=== PATIENT | male | born 1935 | race Caucasian/White ===

== ENCOUNTER 2021-06-10 19:43 | Emergency (ER) | payer MEDICARE, OTHER ==
[2021-06-10] MEDS ORDERED: Diltiazem 100 MG in Sodium Chloride 0.9% 100 ML IV SCH (20:45)
[2021-06-10] MEDS ORDERED: Diltiazem 50 MG/10 ML SDV IVPUSH STA (20:45)
--- NOTE | 2021-06-10 20:48 | EDM.PDOC ---
<Ronny Perkins - Last Filed: 06/11/21 14:59> ED HPI GENERAL MEDICAL PROBLEM - General Chief Complaint: Respiratory Problem Stated Complaint: [facility] Time Seen by Provider: 06/10/21 19:54 - Related Data Allergies Allergy/AdvReac Type Severity Reaction Status Date / Time No Known Allergies Allergy Verified 06/10/21 19:59 Home Meds: Home Meds . [No Known Home Meds] 06/10/21 [History] Course - Re-Assessments/Exams Free Text/Narrative Re-Assessment/Exam: 06/11/21 14:14 The patient's O2 requirements continue to climb. He is on 15 L on a nonrebreather 88 to 90% at this point I will try prone positioning and see if this helps. I had a discussion with the patient regarding his CODE STATUS he confirms he does not want to be put on life support but short of that anything that can be done. I was noted fied roughly 30 minutes ago but that [facility] in [place] would be able to take the patient.. About 5 minutes ago I got off the phone with Dr. De Leon who kindly is excepting the patient. 06/11/21 14:24 I discussed situation with the patient's nephew who strongly supports the jennifer padilla's views on resuscitation the patient is a DNR but treat everything that is treatable at this point. The patient did give me permission to discuss anything about the patient's care and current condition with the nephew. 06/11/21 14:50 The patient is doing much better in the prone position. His blood pressure is little low when trying back off on the diltiazem drip just a little bit she may get his pressure little bit better and will try and decrease his O2 supplementation he is at 100% Departure - Departure Time of Disposition: 14:18 Disposition: DC/Tfer to Acute Hospital 02 Clinical Impression: COVID-19, Pulmonary embolism, Atrial fibrillation with rapid ventricular response, Hypoxia - Discharge Information Referrals: PCP,Unobtain [Primary Care Provider] - Forms: ED Department Discharge <Oz Jennings - Last Filed: 06/12/21 18:47> ED HPI GENERAL MEDICAL PROBLEM - General Source of Information: Reports: Patient History Limitations: Reports: No Limitations - History of Present Illness INITIAL COMMENTS - FREE TEXT/NARRATIVE: Mr. Lambert is a very pleasant 86-year-old gentleman who is now brought to the ED by EMS. It is unclear who called EMS. The patient states that he has been feeling poorly for at least 10 days, including having a dry mouth, dry cough, possible dyspnea, and decreased urine output. He expressly denies having a recent fever, chills, headache, nausea, constipation, diarrhea, abdominal pain, body aches, chest pain or discomfort, or palpitations. He denies having any pain at this time. He has not taken any [id number] or home remedies since the onset of his symptoms. Here in the ED, the patient is found to be tachycardic at 157 bpm, otherwise, he is hemodynamic stable, afebrile, saturating 92% on room air. An ECG, obtained at triage, demonstrates atrial fibrillation with RVR. The patient's PCP is Dr. Quinn Hull, however, the patient states that he has not seen Dr. Hull in at least 6 years. He has not received a COVID vaccination. Treatments HOSPITAL INSURANCE CLERK: Reports: IV/IO Past Medical History Musculoskeletal History: Reports: Other (See Below) (Recurrent osteomyelitis distal left leg) - Past Surgical History HEENT Surgical History: Reports: Oral Surgery (dental extractions) Musculoskeletal Surgical History: Reports: Other (See Below) (Debridement distal left leg x many) Social & Family History - Tobacco Use Tobacco Use Status *Q: Never Tobacco User - Alcohol Use Alcohol Use History: Yes Alcohol Use Frequency: Rarely - Recreational Drug Use Recreational Drug Use: No - Living Situation & Occupation Living situation: Reports: Single, Alone Occupation: Retired ED ROS GENERAL - Review of Systems Review Of Systems: Comprehensive ROS is negative, except as noted in HPI. ED EXAM, GENERAL - Physical Exam Exam: See Below Exam Limited By: No Limitations General Appearance: Alert, No Apparent Distress, Thin Eye Exam: Bilateral Eye: EOMI, Normal Inspection Ears: Normal External Exam, Hearing Grossly Normal Nose: Normal Inspection Throat/Mouth: Normal Inspection, Normal Lips, No Airway Compromise, Other (Dry oral mucosa) Head: Atraumatic, Normocephalic Neck: Normal Inspection, Full Range of Motion Respiratory/Chest: No Respiratory Distress, Lungs Clear, Normal Breath Sounds, No Accessory Muscle Use Cardiovascular: Normal Peripheral Pulses, No Edema, No Gallop, No JVD, No Murmur, No Rub, Tachycardia, Irregularly Irregular Peripheral Pulses: 3+: Radial (L), Radial (R) GI/Abdominal: Normal Bowel Sounds, Soft, Non-Tender, No Organomegaly, No Distention, No Abnormal Bruit, No Mass Back Exam: Normal Inspection, Full Range of Motion, NT Extremities: Normal Range of Motion, No Pedal Edema, Normal Capillary Refill, Other (Approximately 10 cm x 9 cm area of purplish discoloration to the distal anteromedial left leg, with an approximately 5 cm x 3 cm central ulceration. Neurovascular status of the left lower extremity appears to be intact.) Neurological: Alert, Oriented, Normal Cognition, No Motor/Sensory Deficits Psychiatric: Normal Affect Skin Exam: Warm, Dry, Intact, Normal Color, No Rash #1 Interpretation EKG Date: 06/10/21 Time: 19:50 Rhythm: A-Fib Rate (Beats/Min): 147 [place]: Normal P-Wave: Absent QRS: Normal ST-T: Normal QT: Normal Comparison: NA - No Prior EKG Course - Vital Signs Last Recorded V/S: Last Vital Signs Temp 36.7 C 06/10/21 19:50 Pulse 115 H 06/11/21 14:45 Resp 30 H 06/11/21 14:45 BP 105/68 06/11/21 14:45 Pulse Ox 100 06/11/21 14:45 - Orders/Labs/Meds Labs: Laboratory Tests 06/10/21 06/10/21 06/10/21 Range/Units 20:15 21:10 21:10 WBC 15.01 H (4.23-9.07) K/mm3 RBC 4.66 (4.63-6.08) M/mm3 Hgb 15.0 (13.7-17.5) gm/dl Hct 44.1 (40.1-51.0) % MCV 94.6 H (79.0-92.2) fl MCH 32.2 (25.7-32.2) pg MCHC 34.0 (32.2-35.5) g/dl RDW Std Deviation 49.3 H (35.1-43.9) fL Plt Count 129 L (163-337) K/mm3 MPV 10.5 (9.4-12.3) fl Neutrophils % (Manual) 89 H (40-60) % Band Neutrophils % 0 (0-10) % Lymphocytes % (Manual) 5 L (20-40) % Atypical Lymphs % 0 % Monocytes % (Manual) 6 (2-10) % Eosinophils % (Manual) 0 L (0.8-7.0) % Basophils % (Manual) 0 L (0.2-1.2) Toxic Granulation Few Platelet Estimate Decreased Anisocytosis 1+ slight RBC Morph Comment Abn PT (9.7-12.0) SECONDS INR APTT (21.7-31.4) SECONDS D-Dimer, Quantitative (0.19-0.50) mg/L ABG pH (7.35-7.45) ABG pCO2 (35.0-45.0) mmHg ABG pO2 (80.0-100.0) mmHg ABG HCO3 (22.0-26.0) meq/L ABG O2 Saturation (96.0-97.0) % ABG Base Excess (-2-2.0) Jet Test A-a Gradient mmHg O2 Delivery Device Oxygen Flow Rate FiO2 (21.00-100.00) % Sodium 152 H (136-145) mEq/L Potassium 4.1 (3.5-5.1) mEq/L Chloride 116 H (98-107) mEq/L Carbon Dioxide 25 (21-32) mEq/L Anion Gap 15.1 H (5-15) BUN 77 H (7-18) mg/dL Creatinine 2.1 H (0.7-1.3) mg/dL Est Cr Clr Drug Dosing 26.69 mL/min Estimated GFR (MDRD) 30 (>60) mL/min BUN/Creatinine Ratio 36.7 H (14-18) Glucose 165 H (70-99) mg/dL Lactic Acid (0.4-2.0) mmol/L Calcium 8.8 (8.5-10.1) mg/dL Magnesium 2.2 (1.8-2.4) mg/dL Total Bilirubin 7.2 H (0.2-1.0) mg/dL AST 53 H (15-37) U/L ALT 24 (16-63) U/L Alkaline Phosphatase 69 (46-116) U/L Troponin I 0.017 (0.00-0.056) ng/mL C-Reactive Protein 35.7 H* (<1.0) mg/dL Total Protein 6.3 L (6.4-8.2) g/dl Albumin 2.7 L (3.4-5.0) g/dl Globulin 3.6 gm/dL Albumin/Globulin Ratio 0.8 L (1-2) TSH 3rd Generation 0.384 (0.358-3.74) uIU/mL Urine Color (Yellow) Urine Appearance (Clear) Urine pH (5.0-8.0) Ur Specific [place] (1.005-1.030) Urine Protein (Negative) Urine Glucose (UA) (Negative) Urine Ketones (Negative) Urine Occult Blood (Negative) Urine Nitrite (Negative) Urine Bilirubin (Negative) Urine Urobilinogen (0.2-1.0) Ur Leukocyte Esterase (Negative) U Hyaline Cast (Auto) (0-5) /lpf Urine RBC (0-5) /hpf Urine WBC (0-5) /hpf Ur Squamous Epith Cells (0-5) /hpf Urine Bacteria (FEW) /hpf Fine Granular Casts (0-5) /lpf Urine Mucus (FEW) /hpf SARS-CoV-2 RNA (JHONNY) Positive H (NEGATIVE) 06/10/21 06/10/21 06/10/21 Range/Units 21:10 21:10 21:15 WBC (4.23-9.07) K/mm3 RBC (4.63-6.08) M/mm3 Hgb (13.7-17.5) gm/dl Hct (40.1-51.0) % MCV (79.0-92.2) fl MCH (25.7-32.2) pg MCHC (32.2-35.5) g/dl RDW Std Deviation (35.1-43.9) fL Plt Count (163-337) K/mm3 MPV (9.4-12.3) fl Neutrophils % (Manual) (40-60) % Band Neutrophils % (0-10) % Lymphocytes % (Manual) (20-40) % Atypical Lymphs % % Monocytes % (Manual) (2-10) % Eosinophils % (Manual) (0.8-7.0) % Basophils % (Manual) (0.2-1.2) Toxic Granulation Platelet Estimate Anisocytosis RBC Morph Comment PT 19.1 H (9.7-12.0) SECONDS INR 1.81 APTT 41.1 H (21.7-31.4) SECONDS D-Dimer, Quantitative > 35.20 H (0.19-0.50) mg/L ABG pH 7.44 (7.35-7.45) ABG pCO2 33.5 L (35.0-45.0) mmHg ABG pO2 26.0 L* (80.0-100.0) mmHg ABG HCO3 22.1 (22.0-26.0) meq/L ABG O2 Saturation 37.2 L (96.0-97.0) % ABG Base Excess -0.9 (-2-2.0) Jet Test Positive A-a Gradient 132 mmHg O2 Delivery Device Nasal cannula Oxygen Flow Rate 2.0 FiO2 28.00 (21.00-100.00) % Sodium (136-145) mEq/L Potassium (3.5-5.1) mEq/L Chloride (98-107) mEq/L Carbon Dioxide (21-32) mEq/L Anion Gap (5-15) BUN (7-18) mg/dL Creatinine (0.7-1.3) mg/dL Est Cr Clr Drug Dosing mL/min Estimated GFR (MDRD) (>60) mL/min BUN/Creatinine Ratio (14-18) Glucose (70-99) mg/dL Lactic Acid 3.8 H* (0.4-2.0) mmol/L Calcium (8.5-10.1) mg/dL Magnesium (1.8-2.4) mg/dL Total Bilirubin (0.2-1.0) mg/dL AST (15-37) U/L ALT (16-63) U/L Alkaline Phosphatase (46-116) U/L Troponin I (0.00-0.056) ng/mL C-Reactive Protein (<1.0) mg/dL Total Protein (6.4-8.2) g/dl Albumin (3.4-5.0) g/dl Globulin gm/dL Albumin/Globulin Ratio (1-2) TSH 3rd Generation (0.358-3.74) uIU/mL Urine Color (Yellow) Urine Appearance (Clear) Urine pH (5.0-8.0) Ur Specific [place] (1.005-1.030) Urine Protein (Negative) Urine Glucose (UA) (Negative) Urine Ketones (Negative) Urine Occult Blood (Negative) Urine Nitrite (Negative) Urine Bilirubin (Negative) Urine Urobilinogen (0.2-1.0) Ur Leukocyte Esterase (Negative) U Hyaline Cast (Auto) (0-5) /lpf Urine RBC (0-5) /hpf Urine WBC (0-5) /hpf Ur Squamous Epith Cells (0-5) /hpf Urine Bacteria (FEW) /hpf Fine Granular Casts (0-5) /lpf Urine Mucus (FEW) /hpf SARS-CoV-2 RNA (JHONNY) (NEGATIVE) 06/10/21 06/10/21 Range/Units 21:50 23:58 WBC (4.23-9.07) K/mm3 RBC (4.63-6.08) M/mm3 Hgb (13.7-17.5) gm/dl Hct (40.1-51.0) % MCV (79.0-92.2) fl MCH (25.7-32.2) pg MCHC (32.2-35.5) g/dl RDW Std Deviation (35.1-43.9) fL Plt Count (163-337) K/mm3 MPV (9.4-12.3) fl Neutrophils % (Manual) (40-60) % Band Neutrophils % (0-10) % Lymphocytes % (Manual) (20-40) % Atypical Lymphs % % Monocytes % (Manual) (2-10) % Eosinophils % (Manual) (0.8-7.0) % Basophils % (Manual) (0.2-1.2) Toxic Granulation Platelet Estimate Anisocytosis RBC Morph Comment PT (9.7-12.0) SECONDS INR APTT (21.7-31.4) SECONDS D-Dimer, Quantitative (0.19-0.50) mg/L ABG pH (7.35-7.45) ABG pCO2 (35.0-45.0) mmHg ABG pO2 (80.0-100.0) mmHg ABG HCO3 (22.0-26.0) meq/L ABG O2 Saturation (96.0-97.0) % ABG Base Excess (-2-2.0) Jet Test A-a Gradient mmHg O2 Delivery Device Oxygen Flow Rate FiO2 (21.00-100.00) % Sodium (136-145) mEq/L Potassium (3.5-5.1) mEq/L Chloride (98-107) mEq/L Carbon Dioxide (21-32) mEq/L Anion Gap (5-15) BUN (7-18) mg/dL Creatinine (0.7-1.3) mg/dL Est Cr Clr Drug Dosing mL/min Estimated GFR (MDRD) (>60) mL/min BUN/Creatinine Ratio (14-18) Glucose (70-99) mg/dL Lactic Acid 3.3 H* (0.4-2.0) mmol/L Calcium (8.5-10.1) mg/dL Magnesium (1.8-2.4) mg/dL Total Bilirubin (0.2-1.0) mg/dL AST (15-37) U/L ALT (16-63) U/L Alkaline Phosphatase (46-116) U/L Troponin I (0.00-0.056) ng/mL C-Reactive Protein (<1.0) mg/dL Total Protein (6.4-8.2) g/dl Albumin (3.4-5.0) g/dl Globulin gm/dL Albumin/Globulin Ratio (1-2) TSH 3rd Generation (0.358-3.74) uIU/mL Urine Color Brooke H (Yellow) Urine Appearance Clear (Clear) Urine pH 5.5 (5.0-8.0) Ur Specific [place] 1.025 (1.005-1.030) Urine Protein 3+ H (Negative) Urine Glucose (UA) Negative (Negative) Urine Ketones 1+ H (Negative) Urine Occult Blood 3+ H (Negative) Urine Nitrite Positive H (Negative) Urine Bilirubin 2+ H (Negative) Urine Urobilinogen 2.0 H (0.2-1.0) Ur Leukocyte Esterase Negative (Negative) U Hyaline Cast (Auto) 40-50 H (0-5) /lpf Urine RBC 10-20 H (0-5) /hpf Urine WBC 0-5 (0-5) /hpf Ur Squamous Epith Cells 0-5 (0-5) /hpf Urine Bacteria Many H (FEW) /hpf Fine Granular Casts 0-5 (0-5) /lpf Urine Mucus Few (FEW) /hpf SARS-CoV-2 RNA (JHONNY) (NEGATIVE) Meds: Medications Discontinued Medications Generic Name Dose Route Start Last Admin Trade Name Freq PRN Reason Stop Dose Admin Dexamethasone 6 mg 06/11/21 10:32 06/11/21 13:17 Dexamethasone 10 Mg/Ml Sdv IVPUSH 06/11/21 10:33 6 mg ONETIME STA Administration Dexamethasone Confirm 06/11/21 12:37 06/11/21 12:41 Dexamethasone 10 Mg/Ml Sdv Administered 06/11/21 12:38 Not Given Dose 10 mg .ROUTE .STK-MED ONE Diltiazem HCl 5 mg 06/10/21 20:45 06/10/21 21:10 Diltiazem 50 Mg/10 Ml Sdv IVPUSH 06/10/21 20:46 5 mg ONETIME STA Administration Diphenhydramine HCl 50 mg 06/10/21 22:31 Diphenhydramine 50 Mg/Ml Sdv IVPUSH ONETIME PRN hypersensitivity reaction Epinephrine HCl 0.3 mg 06/10/21 22:31 Epinephrine 1 Mg/Ml Sdv IM ONETIME PRN hypersensitivity reaction Famotidine 20 mg 06/10/21 22:31 Famotidine 20 Mg/2 Ml Sdv IVPUSH ONETIME PRN hypersensitivity reaction Heparin Sodium (Porcine) 5,000 units 06/11/21 05:59 06/11/21 07:37 Heparin Sodium 5,000 Units/Ml Vial IVPUSH 06/11/21 06:00 5,000 units .BOLUS STA Administration Diltiazem HCl 100 mg/ Sodium 100 mls @ 10 mls/hr 06/10/21 20:45 06/10/21 21:18 Chloride IV 10 mg/hr TITRATE BERNARDA 10 mls/hr Administration Protocol 10 MG/HR Sodium Chloride 1,000 mls @ 999 mls/hr 06/10/21 22:13 06/11/21 00:22 Normal Saline IV 06/10/21 23:13 999 mls/hr ONETIME ONE Administration CASIRIVIMAB/IMDEVIMAB 10 ml/ 110 mls @ 220 mls/hr 06/10/21 22:31 06/11/21 00:21 Sodium Chloride IV 06/10/21 23:00 220 mls/hr ONETIME ONE Administration Sodium Chloride 100 mls @ 100 mls/min 06/11/21 00:45 Normal Saline IV 06/11/21 01:00 ASDIRECTED [facility] Heparin Sodium/Dextrose 25,000 units in 500 mls @ 26 mls/hr 06/11/21 06:00 06/11/21 07:39 Heparin 25,000 Units In D5w 500 Ml IV 1,300 units/hr TITRATE BERNARDA 26 mls/hr Administration Protocol 1,300 UNITS/HR Remdesivir 200 mg/ Sodium 250 mls @ 250 mls/hr 06/11/21 10:33 06/11/21 13:19 Chloride IV 06/11/21 10:34 250 mls/hr ONETIME ONE Administration Sodium Chloride 1,000 mls @ 150 mls/hr 06/11/21 10:45 Normal Saline IV ASDIRECTED BERNARDA Iopamidol 50 ml 06/11/21 00:31 Iopamidol 755 Mg/Ml 50 Ml Bottle IVPUSH 06/11/21 00:32 ONETIME ONE Methylprednisolone Sodium Succinate 125 mg 06/10/21 22:31 Methylprednisolone Sodium Succinate 125 Mg/2 Ml Sdv IVPUSH ONETIME PRN hypersensitivity reaction Nitrofurantoin Macrocrystals 100 mg 06/10/21 22:26 06/11/21 00:19 Nitrofurantoin Monohydrate/Macrocrystalline 100 Mg Cap PO 06/10/21 22:27 100 mg ONETIME STA Administration Sodium Chloride 30 ml 06/10/21 22:45 Sodium Chloride 0.9% 10 Ml Syringe FLUSH ASDIRECTED BERNARDA Sodium Chloride 10 ml 06/11/21 00:31 Sodium Chloride 0.9% 10 Ml Sdv FLUSH 06/11/21 00:32 ONETIME ONE - Re-Assessments/Exams Free Text/Narrative Re-Assessment/Exam: 06/10/21 20:46 An ECG, obtained at triage, demonstrates atrial fibrillation with RVR at [address] depressions in V4, alone, but otherwise no ischemic changes. I have ordered a work-up and includes numerous blood tests, 2 sets of blood cultures, an ABG, a swab for the SARS-CoV-2 virus, a urinalysis by quick catheter, and a portable chest x-ray. The patient will be given diltiazem 5 mg IVP followed by a drip at 10 mg/h. 06/10/21 22:19 Portable chest radiograph reviewed. 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 The cardiac silhouette is within normal limits. No pulmonary vascular congestion. No pleural effusions seen on this AP view. No focal infiltrate. No pneumothorax. There is hyperinflation and bilateral diaphragmatic flattening, consistent with COPD. There is thoracic scoliosis. Formal read per the Radiologist pending. The patient's CBC is remarkable for leukocytosis of 15.01, but with 0% bandemia, and thrombocytopenia of 129,000, with the remainder of his CBC being unremarkable. His CMP is remarkable for hypernatremia of 152, a BUN/ Cr elevated at 77/2.1, and modest hyperglycemia of 165, with the remainder of his CMP being unremarkable. His magnesium level is within normal limits at 2.2. His lactic acid level is elevated at 3.8. His CRP is significantly elevated at 35.7. His TSH is within normal limits at 0.384. His troponin is undetectably low. His ABG demonstrates a primary respiratory alkalosis with a secondary metabolic alkalosis. His urinalysis is remarkable for orange color, 3+ occult blood with 10-20 WBCs, leukocyte esterase negative with 0-5 WBCs, nitrite positive with many bacteria, and 0-5 squamous epithelial cells. His swab for the SARS-CoV-2 virus is positive. Results of his D-dimer and coags are still pending. Based on the above, I have ordered a urine culture, and will start the patient on nitrofurantoin. I will discussed the option of treatment with Regen-Cov. 06/10/21 22:30 Based on the patient's age, he is a candidate for an infusion of the monoclonal antibody Regen-Cov. We discussed that at length, including that it is an emergency use authorization medication, intended to decrease the likelihood of patients diagnosed with COVID-19 from developing severe symptoms or , and that it does not treat current symptoms. I explained that Regen-Cov is still under investigation, that it is not fully FDA approved, and that the potential benefits and risks of the medication are not fully known. The patient was notified that if he receives Regen-Cov, that it may decrease his immune response to a COVID vaccination, should he decide to get it after he recovers from his current illness. I explained that there is a possibility that he could have an allergic reaction either during or after the infusion, as well as brief pain, bleeding, bruising of the skin, soreness, swelling, and possible infection at the infusion site. Other side effects could occur. I discussed that there are other potential treatment options that are currently not FDA approved to treat COVID-19. The patient was notified that the infusion takes about half an hour, after which he would be expected to remain in the ED for another hour to observe for possible side effects. He was offered the "Patient and caregiver MARTINE Peñaloza fact sheet" to read and review. All questions were answered. The patient expressed understanding, and would like to proceed with the infusion. 06/10/21 23:38 Notified that the lab is unable to result the D-dimer and coags despite 2 attempts. The D-dimer is likely elevated. 06/11/21 04:21 Just notified that the patient had refused the CT angiogram of the chest that I had ordered over 4 hours ago. I went and discussed this with the patient. He does not recall refusing it, and agreed that it is important that we find out if he has a pulmonary embolus as the cause of his new-onset atrial fibrillation. He wants to proceed with the study. 06/11/21 05:58 CT angiogram of the chest is read by vRavelina as: 1. Bilateral segmental pulmonary emboli with moderate clot burden. There is right heart strain. 2. 4.6 x 4.4 cm ascending aortic aneurysm. 3. Atherosclerotic disease of the coronary arteries. 4. Bilateral upper and lower lobe infiltrates consistent with COVID-19. . Based on the above, I will order a heparin bolus + drip. 06/11/21 06:08 [facility] Call contacted at 06:03. Case discussed with Liz at [facility] Call at 06:05. She notified me that the Liquor Clerk, Dr. Sarmiento, is currently occupied, but he will call me back as soon as he is available. 06/11/21 07:04 Called back by Bruna at [facility] at 07:03. She reported that the Liquor Clerk will not be able to discuss this case. 06/11/21 07:[address] Sol at 07:07. We do have one ICU bed available, but with the number and severity of the patient's illnesses, he is concerned that the patient would not likely survive an admission here. He recommended transfer to a higher level of care. 06/11/21 09:45 CTA images pushed to [facility] at 08:15. Case discussed with Sagar at [facility] call at 08:16. Case then discussed with Dr. Barreto, Interventional Radiologist at [facility], at 08:23. Unfortunately, the images had not come across, therefore he was not able to opine as to whether or not the patient would be a good candidate for thrombectomy or thrombolysis or not. The plan was for him to call me back after the images came through and he was able to review them. Called back by Dr. Barreto at 09:44. He felt that there was not a great deal of clot burden, and that most of it was in the lower lobes and peripheral. He did not feel that a thrombectomy was worthwhile, although tPA was an option. 06/11/21 10:15 Case again discussed with Dr. Sol. He is concerned that the patient came in on room air, and is now requiring 5 L of oxygen to maintain an adequate saturation. He is concerned that if he accepts the patient, that the patient will either here or require transfer within the next couple of days. He still feels that the patient would benefit from being under the care of an Liquor Clerk, and recommended that we transfer the patient. 06/11/21 10:24 I discussed CODE STATUS with the patient. While he would like us to do everything we can to get him better, he does not want extraordinary measures. He wishes to be DNR/DNI, and indicated that he has paperwork indicating that at someone's (an assistant county attorney?) office. 06/11/21 10:30 We have placed a call to [facility]. Because the patient has COVID-19, they will need to discuss it at a higher level, and will call us back. We do not know how long that will take. Because the patient is hypoxemic, he now qualifies for dexamethasone and remdesivir. I will order these, along with some additional IV fluid. Case discussed with Dr. Perkins, and care of the patient turned over to him at this time, for change of shift, for disposition. Sepsis Event Note (ED) - Evaluation Sepsis Screening Result: Possible Sepsis Risk
[2021-06-10] MEDS ORDERED: Sodium Chloride 0.9% 1,000 ML IV ONE (22:13)
[2021-06-10] MEDS ORDERED: Nitrofurantoin Monohydrate/Macrocrystalline 100 MG Cap PO STA (22:26)
[2021-06-10] MEDS ORDERED: Famotidine 20 MG/2 ML SDV IVPUSH PRN (22:31)
[2021-06-10] MEDS ORDERED: methylPREDNISolone Sodium Succinate 125 MG/2 ML SDV IVPUSH PRN (22:31)
[2021-06-10] MEDS ORDERED: diphenhydrAMINE 50 MG/ML SDV IVPUSH PRN (22:31)
[2021-06-10] MEDS ORDERED: EPINEPHrine 1 MG/ML SDV IM PRN (22:31)
[2021-06-10] MEDS ORDERED: Sodium Chloride 0.9% 10 ML Syringe FLUSH SCH (22:45)
[2021-06-11] MEDS ORDERED: Sodium Chloride 0.9% 10 ML SDV FLUSH ONE (00:31)
[2021-06-11] MEDS ORDERED: Iopamidol 755 MG/ML 50 ML Bottle IVPUSH ONE (00:31)
[2021-06-11] MEDS ORDERED: Sodium Chloride 0.9% 100 ML IV SCH (00:45)
[2021-06-11] MEDS ORDERED: Heparin Sodium 5,000 Units/ML Vial IVPUSH STA (05:59)
[2021-06-11] MEDS ORDERED: Heparin Sodium/D5W 25,000 UNITS/500 ML BAG IV SCH (06:00)
[2021-06-11] MEDS ORDERED: Dexamethasone 10 MG/ML SDV IVPUSH STA (10:32)
[2021-06-11] MEDS ORDERED: REMDESIVIR 200 MG in Sodium Chloride 0.9% 250 ML IV ONE (10:33)
[2021-06-11] MEDS ORDERED: Sodium Chloride 0.9% 1,000 ML IV SCH (10:45)
--- NOTE | 2021-06-11 11:18 | CR ---
Chest: Portable view of the chest was obtained. Comparison: No prior chest x-ray is available, previous chest CT performed subsequently (4:34 AM). Patchy areas of increased density are seen throughout both sides of the chest. Heart is mildly enlarged. Upper mediastinum appears within normal limits. Scoliosis and scattered degenerative change are noted within the spine. Impression: 1. Patchy areas of increased density within both sides of the chest most likely representing COVID pneumonia. 2. Other findings as described above which are believed to be chronic. Diagnostic code #3
--- NOTE | 2021-06-11 11:28 | CT ---
CT chest Technique: Multiple axial sections were obtained from above the lung apices inferiorly through the lung bases. Intravenous contrast was utilized. Study has been performed as a pulmonary angiogram protocol. Comparison: No prior chest CT study is available, prior chest x-ray performed earlier on the same day (8:55 PM). Findings: Diffuse pulmonary emboli are seen within the segmental and subsegmental branches within both lower lungs. No definite upper lobe pulmonary emboli are seen. 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 Scattered coronary artery calcification is seen. Mediastinum shows no adenopathy. No axillary adenopathy is seen. Lung window settings were reviewed which show diffuse patchy areas of increased density within the upper and lower lungs. No pericardial thickening is seen. Heart is slightly enlarged. Intraventricular septum is slightly bowed suspicious for elevated right heart strain. Visualized upper abdominal structures show nothing acute. Bone window setting shows scattered degenerative change within the spine with mild scoliosis. Impression: 1. Bilateral lower lobe pulmonary emboli. These findings are causing right heart strain. 2. Diffuse parenchymal change within both lungs compatible with diffuse COVID pneumonia. 3. 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 Other chronic findings as noted above. Diagnostic code #3 I agree with preliminary report from [facility], finalized on 06/11/21, 6:55 AM CDT, code 1
[2021-06-11] MEDS ORDERED: Dexamethasone 10 MG/ML SDV ONE (12:37)
== END 2021-06-11 16:30 ==
LOC: JD.ED 19:43
DX: U07.1 COVID-19 (principal); I26.99 Other pulmonary embolism without acute cor pulmonale; I48.91 Unspecified atrial fibrillation; R82.71 Bacteriuria
CPT/HCPCS: 36415; 36600; 71045; 71275; 80053; 81001; 82803; 83605; 83735; 84443; 84484; 85007; 85027; 85379; 85610; 85730; 86140; 87040; 87086; 93005; 96365; 96366; 96367; 96375; 99285; A9270; J1100; J1644; J3490; J7030; J7050; M0243; Q0243; Q9967; U0002; 93010